=== PATIENT | male | born 1990 | race African-American/Black ===

== ENCOUNTER 2020-11-14 18:08 | Emergency (ER) | payer MEDICAID, OTHER ==
[~2020-11-14] VITALS: Ht 175.3 cm; Wt 73.0 kg
[2020-11-14 18:20] VITALS: BP 145/104
== END 2020-11-14 20:00 | disposition left against medical advice (07) ==
LOC: ER 18:08
DX: M54.2 Cervicalgia (principal); Z53.21 Procedure and treatment not carried out due to patient leaving prior to being seen by health care provider
CPT/HCPCS: 93005

== ENCOUNTER 2021-06-11 14:07 | Emergency (ER) | payer MEDICAID, OTHER ==
[~2021-06-11] VITALS: Ht 185.4 cm; Wt 77.0 kg
[2021-06-11 14:09] VITALS: BP 148/111
== END 2021-06-11 16:59 | disposition home or self-care (01) ==
LOC: ER 14:17
DX: R07.89 Other chest pain (principal)
CPT/HCPCS: 93005; 99283; Z7610